=== PATIENT | female | born 1985 | race American Indian/Alaskan Native ===

== ENCOUNTER 2016-08-20 23:50 | Outpatient (CLI) | payer MEDICAID ==
[2016-08-20] MEDS ORDERED: LACTATED RINGERS 500 ML IV ONE (23:55)
[2016-08-21 00:12] VITALS: BP 99/57
[2016-08-21 00:28] LABS: Bilirubin,Urine NEG (Negative); Blood,Urine NEG (Negative); Ketones,Urine NEG (Negative); Leukocyte Esterase,Urine NEG (Negative); Mucus,Urine FEW /HPF; Nitrite,Urine NEG (Negative); Protein,Urine <15 mg/dL mg/dL (Negative); Urobilinogen,Urine < 2.0 mg/dL (<2.0)
[2016-08-21 00:32] LABS: RBC,Urine < 1.0 /HPF (0.0-6.0); WBC,Urine < 1.0 /HPF (0.0-6.0)
== END 2016-08-21 01:05 | disposition home or self-care (01) ==
LOC: TRG 23:50
PROVIDERS: ATTEND Obstetrics & Gynecology
DX: O26.892 Other specified pregnancy related conditions, second trimester (principal); R25.2 Cramp and spasm; Z3A.27 27 weeks gestation of pregnancy
CPT/HCPCS: 59025; 81001

== ENCOUNTER 2017-09-04 15:59 | Emergency (ER) | payer MEDICAID ==
[2017-09-04 16:46] VITALS: BP 124/76
[2017-09-04 18:03] LABS: Bilirubin,Urine NEG (Negative); Blood,Urine NEG (Negative); Color,Urine Yellow (Yellow); HCG Qualitative,Urine Negative (Negative); Mucus,Urine 3+ /HPF; Protein,Urine <15 mg/dL mg/dL (Negative)
--- NOTE | 2017-09-04 19:30 | Emergency Department Report ---
ED Female HPI - General Chief complaint: Abdominal Pain Stated complaint: CRAMPING Time Seen by Provider: 09/04/17 19:08 Source: patient Mode of arrival: Ambulatory Limitations: No Limitations - History of Present Illness Initial comments: This is a 32-year-old -[place] female that presents with abdominal cramping and to verify . Patient reports taken a home test this morning which was positive. She went into the [facility] office and took a test there which was negative this afternoon. Patient reports last menstrual period was 08/07/2017 and scheduled to start September 03. She went like to have confirmation of . Patient reports having vaginal discharge that is clear for 1 week and low abdominal cramping. 4 para 4 A0. Denies frequency, urgency, dysuria, and nausea or vomiting. MD Complaint: vaginal discharge (clear discharge), pelvic pain (lower abdominal cramping) -: week(s) (1 week) Location: suprapubic Radiation: non-radiating Severity: mild Severity scale (0 -10): 2 Quality: cramping Consistency: intermittent Improves with: none Worsens with: none Are you Now?: No Last Menstrual Period: 08/07/17 EDC: 05/14/18 Associated Symptoms: vaginal discharge (clear discharge), abdominal pain (lower abdominal cramping). denies: vaginal bleeding, nausea/vomiting, fever/chills, headaches, loss of appetite, dysuria, hematuria, rash, seizure, shortness of breath, syncope, weakness - Related Data Sexually active: Yes : 4 Para: 4 A: 0 Home Medications Medication Instructions Recorded Confirmed Last Taken Pnv,Calcium 72/Iron,Carb/Folic 1 tab PO DAILY 11/17/13 10/31/16 10/31/16 05:00 [ Plus Iron Tablet] valACYclovir [Valtrex] 500 mg PO BID 11/17/13 10/31/16 10/31/16 05:00 Allergies Allergy/AdvReac Type Severity Reaction Status Date / Time No Known Allergies Allergy Verified 02/22/15 15:21 ED Review of Systems ROS: Stated complaint: CRAMPING Other details as noted in HPI Constitutional: denies: chills, fever Respiratory: denies: cough, shortness of breath, wheezing Cardiovascular: denies: chest pain, palpitations Gastrointestinal: abdominal pain (lower abdominal cramping). denies: nausea, vomiting, diarrhea Genitourinary: discharge (clear thin discharge). denies: urgency, dysuria Musculoskeletal: denies: back pain, joint swelling, arthralgia Neurological: denies: headache, weakness, paresthesias Psychiatric: denies: anxiety, depression ED Past Medical Hx - Past Medical History Previous Medical History?: Yes Hx Hypertension: No Hx Congestive Heart Failure: No Hx Diabetes: No Hx Deep Vein Thrombosis: No Hx Renal Disease: No Hx Sickle Cell Disease: No Hx Seizures: No Hx Asthma: No Hx COPD: No Hx HIV: No Additional medical history: Vaginal delivery x 4 - Surgical History Past Surgical History?: Yes Additional Surgical History: Arthroscopy Right knee - Social History Smoking Status: Never Smoker Substance Use Type: Alcohol - Medications Home Medications: Home Medications Medication Instructions Recorded Confirmed Last Taken Type Pnv,Calcium 72/Iron,Carb/Folic 1 tab PO DAILY 11/17/13 10/31/16 10/31/16 05:00 History [ Plus Iron Tablet] valACYclovir [Valtrex] 500 mg PO BID 11/17/13 10/31/16 10/31/16 05:00 History ED Physical Exam - General Limitations: No Limitations General appearance: alert, in no apparent distress - Respiratory Respiratory exam: Present: normal lung sounds bilaterally. Absent: respiratory distress - Cardiovascular Cardiovascular Exam: Present: regular rate, normal rhythm, normal heart sounds. Absent: systolic murmur, diastolic murmur, rubs, gallop - GI/Abdominal GI/Abdominal exam: Present: soft, normal bowel sounds - Back Exam Back exam: Present: normal inspection. Absent: CVA tenderness (R), CVA tenderness (L) - Neurological Exam Neurological exam: Present: alert, oriented X3, normal gait - Psychiatric Psychiatric exam: Present: normal affect, normal mood - Skin Skin exam: Present: warm, dry, intact, normal color. Absent: rash ED Course Vital Signs 09/04/17 16:39 Temperature 98.5 F Pulse Rate 99 H Respiratory 18 Rate Blood Pressure 124/76 O2 Sat by Pulse 99 Oximetry ED Medical Decision Making - Medical Decision Making This is a 32 y.o. female presents with vaginal discharge and lower abdominal pain for one week. Patient took a home test this morning which was positive and would like to have confirmation of . Patient was examined by me. Vitals are stable and in no acute distress. Obtain urinalysis and urine hCG are all within normal limits. Discussed results with patient. Instructed to wait 1-2 weeks to see if menses start and follow up with primary care provider. Discharged home in stable condition. Discussed prevention options. F/U with PCP or Health Department. Critical care attestation.: If time is entered above; I have spent that time in minutes in the direct care of this critically ill patient, excluding procedure time. ED Disposition Clinical Impression: Negative test Disposition: TO HOME OR SELFCARE Is pt being admited?: No Does the pt Need Aspirin: No Condition: Stable Instructions: (ED), Abdominal Pain (ED) Additional Instructions: Follow-up with primary care provider or [facility]. Referrals: [facility] [Outside] - 3-5 Days [facility] [Provider Group] - 3-5 Days [facility] [Provider Group] - 3-5 Days Time of Disposition: 19:37 Print Language: THAI
== END 2017-09-04 19:43 | disposition home or self-care (01) ==
LOC: ED 15:59
DX: R10.30 Lower abdominal pain, unspecified (principal); N89.8 Other specified noninflammatory disorders of vagina
CPT/HCPCS: 81001; 81025; 99283

== ENCOUNTER 2018-04-04 16:19 | Outpatient (CLI) | payer MEDICAID ==
[2018-04-04] MEDS ORDERED: CELESTONE SOLUSPAN IM ONE (16:36)
== END 2018-04-04 17:05 | disposition home or self-care (01) ==
LOC: TRG 16:19
PROVIDERS: ATTEND Obstetrics & Gynecology
DX: O36.0130 Maternal care for anti-D [Rh] antibodies, third trimester, not applicable or unspecified (principal); Z3A.34 34 weeks gestation of pregnancy
CPT/HCPCS: 96372; J0702

== ENCOUNTER 2018-04-05 12:46 | Outpatient (CLI) | payer MEDICAID ==
[2018-04-05 13:02] VITALS: BP 108/55
--- NOTE | 2018-04-05 14:56 | Ultrasound Report ---
ULTRASOUND BIOPHYSICAL PROFILE: History: well being Technique: Transabdominal ultrasound with Doppler interrogation. 2 - breathing movements 2 - movements 2 - posture and tone 2 - Qualitative amniotic fluid volume 8 - TOTAL SCORE OF POSSIBLE 8 Heart Rate (bpm) 141
--- NOTE | 2018-04-05 14:57 | Ultrasound Report ---
ULTRASOUND OB LIMITED History: well being Technique: Transabdominal ultrasound with Doppler interrogation. Gestation: Single Position: Cephalic Amniotic Fluid: Normal [place] = 8.3 cm Heart Rate: 138 BPM
== END 2018-04-05 15:07 | disposition home or self-care (01) ==
LOC: TRG 12:46
PROVIDERS: ATTEND Obstetrics & Gynecology
DX: O47.03 False labor before 37 completed weeks of gestation, third trimester (principal); Z3A.34 34 weeks gestation of pregnancy
CPT/HCPCS: 59025; 76815; 76819

== ENCOUNTER 2018-04-24 12:28 | Inpatient (IN) | payer MEDICAID ==
[2018-04-24] MEDS ORDERED: MINERAL OIL PO PRN (13:05)
[2018-04-24] MEDS ORDERED: BRETHINE SUB-Q PRN (13:05)
[2018-04-24] MEDS ORDERED: NARCAN 0.4 MG/1 ML IV PRN (13:05)
[2018-04-24] MEDS ORDERED: XYLOCAINE 2% INFILTRATI ONE (13:05)
[2018-04-24] MEDS ORDERED: ZOFRAN IV PRN (13:05)
--- NOTE | 2018-04-24 13:12 | History and Physical Report ---
History of Present Illness Date of examination: 04/24/18 Date of admission: 04/24/18 12:41 Chief complaint: My water broke at 12:30PM today. 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 Past History Past Medical History: other (Depression) Past Surgical History: other (Knee sx) [facility] [facility] History: herpes, trichomonas Family/Genetic History: diabetes, hypertension, cancer Social history: no significant social history, single - Obstetrical History Expected Date of Delivery: 05/14/18 Actual Gestation: 37 Week(s) 1 Day(s) : 5 Para: 4 Hx # Term Pregnancies: 4 Number of Living Children: 4 #1 Infant Gender: Male year: 2,011 Birthweight: 2.948 kg Method of Delivery: Vaginal #2 Gender: Male year: 2,014 Birthweight: 3.714 kg Method of Delivery: Vaginal #3 Infant Gender: Male year: 2,015 Birthweight: 3.203 kg Method of Delivery: Vaginal #4 Gender: Female year: 2,017 Birthweight: 3.26 kg Method of Delivery: Vaginal Gestational age at delivery: 37 Medications and Allergies Allergies Allergy/AdvReac Type Severity Reaction Status Date / Time No Known Allergies Allergy Verified 02/22/15 15:21 Home Medications Medication Instructions Recorded Confirmed Last Taken Type Pnv,Calcium 72/Iron,Carb/Folic 1 tab PO DAILY 11/17/13 04/24/18 04/24/18 12:00 History [ Plus Iron Tablet] valACYclovir [Valtrex] 500 mg PO BID 11/17/13 04/24/18 04/24/18 12:00 History Review of Systems All systems: negative - Vital Signs Vital signs: Vital Signs Temp Resp 98.0 F 04/24/18 12:30 04/24/18 12:30 Temp Pulse Resp BP Pulse Ox 98.0 F 04/24/18 12:30 04/24/18 12:30 - Physical Exam Breasts: Cardiovascular: Regular rate, Normal S1, Normal S2 Abdomen: Positive: normal appearance, soft, normal bowel sounds. Negative: dist ention, tenderness Vulva: both: normal Vagina: Positive: normal moisture. Negative: discharge Cervix: Negative: lesion, discharge Uterus: Positive: normal size, normal contour Adnexa: both: normal Anus/Rectum: Positive: normal perianal skin, heme negative. Negative: rectal mass, hemorrhoids Extremities: Deep Tendon Reflex Grade: Normal +2 Results All other labs normal. Assessment and Plan A: IUP @ 37 1/7 Weeks PROM Category I Tracing GBS Negative P: Admit to L&D per Routine Orders Pitocin Induction
[2018-04-24] MEDS ORDERED: BRETHINE IVP PRN (13:13)
[2018-04-24] MEDS ORDERED: PITOCin/NS 30 UNIT/500ML 30 UNITS/500 ML BAG IV SCH (14:00)
[2018-04-24 14:05] LABS: Hematocrit 36.9 % (30.3-42.9); Hemoglobin 12.1 gm/dl (10.1-14.3); Mean Corpuscular HGB Conc 33 % (30-34); Mean Corpuscular Volume 82 fl (79-97); Platelet Count 185 K/mm3 (140-440); Red Blood Count 4.51 M/mm3 (3.65-5.03); Red Cell Distribution Width 15.4 % (13.2-15.2)
[2018-04-24] MEDS: LACTATED RINGERS 1,000 ML IV SCH ×3 (14:55→21:41)
[2018-04-24] MEDS: STADOL IV PRN ×2 (16:40→18:49)
--- NOTE | 2018-04-24 18:05 | Progress Note ---
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 Patient reports: loss of fluid, movement normal, contractions Objective - Vital Signs Vital Signs: Vital Signs - 12hr 04/24/18 04/24/18 04/24/18 12:30 14:01 15:12 Temperature 98.0 F 98.2 F Pulse Rate 96 H Respiratory 16 Rate Blood Pressure 121/69 04/24/18 04/24/18 04/24/18 15:42 16:00 16:12 Temperature 98.2 F Pulse Rate 88 93 H Respiratory Rate Blood Pressure 109/67 119/64 04/24/18 04/24/18 16:42 17:12 Temperature Pulse Rate 82 83 Respiratory Rate Blood Pressure 118/67 114/69 - Exam Breasts: normal Cardiovascular: Regular rate Lungs: Clear to auscultation, Normal air movement Abdomen: Present: normal appearance, soft, normal bowel sounds Uterus: Present: normal, firm, fundal height above umbilicus FHR: category 1 Uterine Contraction Monitor Mode: External Cervical Dilatation: 3 (leaking a moderate amount of clear fluid) Cervical Effacement Percentage: 80 station: -3 Uterine Contraction Pattern: Regular Uterine Tone Measurement Phase: Resting Uterine Contraction Intensity: Moderate Extremities: normal - Labs Labs: Abnormal Labs 04/24/18 13:00 MCH 27 L RDW 15.4 H Laboratory Results - last 24 hr 04/24/18 04/24/18 13:00 13:00 WBC 9.5 RBC 4.51 Hgb 12.1 Hct 36.9 MCV 82 MCH 27 L MCHC 33 RDW 15.4 H Plt Count 185 Blood Type O POSITIVE Antibody Screen Negative
[2018-04-24] MEDS ORDERED: NARCAN 2 MG/2 ML IV PRN (18:29)
[2018-04-24] MEDS ORDERED: fentaNYL-BUPIV 2 MCG/ML-0.125% 200 MCG/100 ML BAG EPIDURAL SCH (19:00)
--- NOTE | 2018-04-24 20:01 | Anesthesia Consultation ---
Anesthesia Consult and Med Hx Date of service: 04/24/18 - Airway Anesthetic Teeth Evaluation: Good ROM Head & Neck: Adequate Mental/Hyoid Distance: Adequate Mallampati Class: Class II Intubation Access Assessment: Probably Good - Pulmonary Exam CTA: Yes - Cardiac Exam Cardiac Exam: RRR - Pre-Operative Health Status ASA Pre-Surgery Classification: ASA2 Proposed Anesthetic Plan: Epidural - Pulmonary Hx Smoking: No Hx Asthma: No Hx Respiratory Symptoms: No - Cardiovascular System Hx Hypertension: No Hx Heart Attack/AMI: No - Central Nervous System Hx Neuromuscular Disorder: No Hx Seizures: No CVA: No - Endocrine Hx Renal Disease: No Hx Liver Disease: No Hx Insulin Dependent Diabetes: No Hx Non-Insulin Dependent Diabetes: No Hx Thyroid Disease: No - Additional Comments Anesthesia Medical History Comments: No complications with previous labor epidurals.
[2018-04-24] MEDS ORDERED: BRETHINE SUB-Q ONE (21:05)
[2018-04-24] MEDS: PITOCin/NS 20 UNIT/1000ML DRIP 20 UNITS/1,000 ML BAG IV SCH ×2 (21:44→22:52)
[2018-04-24] MEDS ORDERED: BENADRYL PO PRN (22:04)
[2018-04-24] MEDS ORDERED: TUCKS PAD TP PRN (22:04)
--- NOTE | 2018-04-24 22:12 | Procedure Note ---
OB Delivery Note - Delivery Date of Delivery: 04/24/18 (2138) Surgeon: ROMEL VINES Estimated blood loss: other (250) - Vaginal Delivery presentation: vertex Delivery position: OA Intrapartum events: mult.variable deceleratio Delivery induction: oxytocin Delivery augmentation: pitocin Delivery monitor: external FHT, external uterine Route of delivery: Delivery placenta: spontaneous Delivery cord: 3 umbilical vessels Episiotomy: none Delivery laceration: none Anesthesia: epidural Delivery comments: of a live 6'4 male over a intact perineum under epidural anesthesia with Apgars of 7 and 9 at 2138 on 04/24/2018. directly to maternal abd/chest, skin to skin contact. Spontaneous delivery of placenta complete and intact with Steven side presenting at 2142. Fundus is firm and midline located 4 below the U. Lochia is scant. Delayed cord clamping and cutting. Cord blood collected. Placenta discarded. - Infant A at 1 minute: 7 at 5 minutes: 9 Gender: Male (6'4)
[2018-04-24] MEDS ORDERED: SODIUM CHLORIDE FLUSH SYRINGE 10 ML IV NR (23:00)
[2018-04-25] MEDS: NORCO 5/325 PO PRN ×3 (02:59→15:20)
[2018-04-25] MEDS: IBUPROFEN PO SCH ×2 (03:00→18:09)
[2018-04-25] MEDS: PRENATAL VITAMIN PO SCH (08:36)
--- NOTE | 2018-04-25 10:35 | Progress Note ---
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 Patient reports: appetite normal, voiding normally, pain well controlled, flatus, ambulating normally : doing well, bottle feeding (and ) Objective - Vital Signs Latest vital signs: Vital Signs Temp Pulse Resp BP BP Pulse Ox 04/25/18 08:28 97.4 F L 63 100 H 115/64 04/25/18 04:00 98.7 F 77 18 114/78 04/25/18 03:00 18 04/25/18 02:59 18 04/25/18 00:40 114/66 04/25/18 00:28 98.3 F 18 97/53 04/24/18 22:37 102 H 112/55 04/24/18 22:22 99 H 108/57 04/24/18 22:07 100 H 109/59 04/24/18 21:53 106 H 105/54 04/24/18 21:31 112 H 100 04/24/18 21:26 116 H 100 04/24/18 21:09 100 H 129/74 04/24/18 20:54 86 136/87 04/24/18 20:38 71 116/75 04/24/18 20:20 120/68 04/24/18 20:17 80 112/67 04/24/18 20:14 71 114/70 04/24/18 20:11 81 117/67 04/24/18 20:08 89 114/66 04/24/18 20:05 77 112/63 04/24/18 20:02 75 114/65 04/24/18 19:59 93 H 105/57 04/24/18 19:56 95 H 110/61 04/24/18 19:53 88 111/59 04/24/18 19:50 80 108/58 04/24/18 19:47 97.8 F 94 H 18 102/55 102/55 04/24/18 19:44 86 109/59 04/24/18 19:40 85 103/60 04/24/18 19:38 90 100/57 04/24/18 19:35 114 H 96/51 04/24/18 19:32 95 H 104/55 04/24/18 19:30 96 H 114/59 04/24/18 19:12 90 137/65 04/24/18 18:12 80 104/69 04/24/18 17:12 83 114/69 04/24/18 16:42 82 118/67 04/24/18 16:12 93 H 119/64 04/24/18 16:00 98.2 F 04/24/18 15:42 88 109/67 04/24/18 15:12 96 H 121/69 04/24/18 14:01 98.2 F 04/24/18 12:30 98.0 F 16 Intake and Output 04/24/18 04/25/18 04/25/18 22:59 06:59 14:59 Intake Total 687.500 300 Output Total 1500 Balance 687.500 -1200 Intake: IV 687.500 Lactated Ringers 1,000 ml 545.833 @ 125 mls/hr IV DIRECT SCOTT Rx#:[id number] PITOCin/NS 20 UNIT/1000ML 141.667 DRIP 20 units In 1,000 ml @ 125 mls/hr IV DIRECT SCOTT Rx#:[id number] Oral 300 Output: Urine 1500 Void 1500 Other: Total, Intake Amount 300 Total, Output Amount 600 Estimated Blood Loss 250 - Exam Breasts: Present: normal Cardiovascular: Present: Regular rate Lungs: Present: Clear to auscultation, Normal air movement Abdomen: Present: normal appearance, soft, normal bowel sounds Uterus: Present: normal, firm, fundal height below umbilicus Extremities: Present: normal - Labs Labs: Abnormal lab results 04/24/18 Range/Units 13:00 MCH 27 L (28-32) pg RDW 15.4 H (13.2-15.2) %
--- NOTE | 2018-04-25 10:36 | Discharge Summary ---
Providers - Providers Date of Admission: 04/24/18 12:41 Date of discharge: 04/26/18 Attending physician: MAYCO CORONEL MD Primary care physician: MAYCO CORONEL MD Hospitalization Reason for admission: rupture of membranes Delivery: Episiotomy: none Laceration: none Other procedures: none complications: none Discharge diagnosis: IUP at term delivered [place] baby: male Condition at discharge: Good Disposition: DC-01 TO HOME OR SELFCARE Plan - Provider Discharge Summary Activity: routine, no sex for 6 weeks, no heavy lifting 4 weeks, no strenuous exercise Diet: routine Instructions: routine Additional instructions: [] Smoking cessation referral if applicable(refer to patient education folder for contact #) [] Refer to [facility] Booklet Call your doctor immediately for: * Fever > 100.5 * Heavy vaginal bleeding ( >1 pad per hour) * Severe persistent headache * Shortness of breath * Reddened, hot, painful area to leg or breast * Drainage or odor from incision. * Keep incision clean and dry at all times and follow doctor's instructions regarding bathing/showering - Follow up plan Follow up: MAYCO CORONEL MD [Primary Care Provider] - 6 Weeks
[2018-04-25 10:41] LABS: Hematocrit 35.4 % (30.3-42.9); Hemoglobin 11.6 gm/dl (10.1-14.3)
[2018-04-25] MEDS ORDERED: DEPO-PROVERA (CONTRACEPTION) IM NR (11:00)
[2018-04-25] MEDS ORDERED: AFLURIA QUAD 2018-2019 SYRINGE IM ONE (12:00)
[2018-04-26] MEDS: IBUPROFEN PO SCH ×2 (01:17→06:10)
[2018-04-26] MEDS ORDERED: BOOSTRIX IM ONE (06:00)
[2018-04-26 09:26] VITALS: BP 108/75
[2018-04-26] MEDS: PRENATAL VITAMIN PO SCH (10:00)
[2018-04-26] MEDS: NORCO 5/325 PO PRN (10:10)
[2018-04-26] MEDS ORDERED: AFLURIA QUAD 2018-2019 SYRINGE IM ONE (11:00)
== END 2018-04-26 15:30 | disposition home or self-care (01) | DRG 775 ==
LOC: TRG 12:28 → LD 12:41 → TRG 12:41 → OB 04-25 00:37
PROVIDERS: ADMIT Obstetrics & Gynecology; ATTEND Obstetrics & Gynecology
PROC: 10E0XZZ Delivery of Products of Conception, External Approach (ICD-10-PCS; principal; 2018-04-24)
PROC: 3E033VJ Introduction of Other Hormone into Peripheral Vein, Percutaneous Approach (ICD-10-PCS; 2018-04-24)
PROC: 3E0R3BZ Introduction of Anesthetic Agent into Spinal Canal, Percutaneous Approach (ICD-10-PCS; 2018-04-24)
PROC: 00HU33Z Insertion of Infusion Device into Spinal Canal, Percutaneous Approach (ICD-10-PCS; 2018-04-24)
PROC: 3E0234Z Introduction of Serum, Toxoid and Vaccine into Muscle, Percutaneous Approach (ICD-10-PCS; 2018-04-26)
DX: O42.02 Full-term premature rupture of membranes, onset of labor within 24 hours of rupture (principal); O99.344 Other mental disorders complicating childbirth; Z3A.37 37 weeks gestation of pregnancy; Z37.0 Single live birth; Z23 Encounter for immunization; F32.9 Major depressive disorder, single episode, unspecified; Z83.3 Family history of diabetes mellitus; Z82.49 Family history of ischemic heart disease and other diseases of the circulatory system; Z80.9 Family history of malignant neoplasm, unspecified; O76 Abnormality in fetal heart rate and rhythm complicating labor and delivery
CPT/HCPCS: 36415; 85014; 85018; 85027; 86592; 86850; 86900; 86901; 90686; 90715; G0378; J0595; J1050; J2590; J3105; J7120

== ENCOUNTER 2020-05-07 06:05 | Emergency (ER) | payer MEDICAID ==
[2020-05-07 06:35] VITALS: BP 113/77
[2020-05-07 06:58] LABS: Bacteria,Urine 1+ /HPF (Negative); Bilirubin,Urine NEG (Negative); Blood,Urine LG (Negative); Color,Urine Yellow (Yellow); Mucus,Urine FEW /HPF; Urobilinogen,Urine < 2.0 mg/dL (<2.0)
[2020-05-07 07:02] LABS: RBC,Urine > 182.0 /HPF (0.0-6.0)
[2020-05-07 07:44] LABS: Basophils % (Auto) 0.7 % (0.0-1.8); Eosinophils # (Auto) 0.1 K/mm3 (0.0-0.4); Hematocrit 40.8 % (30.3-42.9); Hemoglobin 13.7 gm/dl (10.1-14.3); Lymphocytes # (Auto) 2.1 K/mm3 (1.2-5.4); Lymphocytes % (Auto) 31.6 % (13.4-35.0); Mean Corpuscular HGB Conc 33 % (30-34); Mean Corpuscular Volume 86 fl (79-97); Monocytes # (Auto) 0.3 K/mm3 (0.0-0.8); Monocytes % (Auto) 5.2 % (0.0-7.3); Platelet Count 330 K/mm3 (140-440); Red Blood Count 4.73 M/mm3 (3.65-5.03); Red Cell Distribution Width 14.5 % (13.2-15.2)
[2020-05-07 08:00] LABS: Alanine Aminotransferase 14 units/L (7-56); Albumin 4.4 g/dL (3.9-5); Blood Urea Nitrogen 14 mg/dL (7-17); Calcium 9.3 mg/dL (8.4-10.2); Hemolysis Index 6
[2020-05-07 08:03] LABS: BUN/Creatinine Ratio 23
[2020-05-07] MEDS ORDERED: ACETAMINOPHEN 325 MG TAB PO ONE (08:04)
--- NOTE | 2020-05-07 08:34 | Emergency Department Report ---
ED General Adult HPI - General Chief complaint: Vaginal Bleeding Stated complaint: 4WKS PREG/BLEEDING Time Seen by Provider: 05/07/20 07:33 Source: patient Mode of arrival: Ambulatory Limitations: No Limitations - History of Present Illness Initial comments: 34-year-old -[place] female patient presents with complaints of abdominal cramping and vaginal bleeding x today. Patient states she had a positive blood test at [facility] about 2 weeks ago. Last menstrual cycle was 03/09/2020. She denies any vaginal discharge/dyspareunia, abena sea/vomiting/diarrhea, fever/chills/sweats, or dysuria/hematuria/urinary frequency. Patient rates her current pain as a 5/10 in severity. She denies trying any OTC medication for symptoms. Severity scale (0 -10): 4 - Related Data Home Medications Medication Instructions Recorded Confirmed Last Taken Pnv,Calcium 72/Iron,Carb/Folic 1 tab PO DAILY 11/17/13 04/24/18 04/24/18 12:00 [ Plus Iron Tablet] valACYclovir [Valtrex] 500 mg PO BID 11/17/13 04/24/18 04/24/18 12:00 Previous Rx's Medication Instructions Recorded Last Taken Type Nitrofurantoin [place]/M-Cryst 100 mg PO Q12HR 5 Days #10 capsule 05/07/20 Unknown Rx [Macrobid CAP] Allergies Allergy/AdvReac Type Severity Reaction Status Date / Time No Known Allergies Allergy Verified 02/22/15 15:21 ED Review of Systems ROS: Stated complaint: 4WKS PREG/BLEEDING Other details as noted in HPI Constitutional: denies: chills, diaphoresis, fever, malaise, weakness Respiratory: denies: cough, shortness of breath Cardiovascular: denies: chest pain Gastrointestinal: abdominal pain. denies: nausea, vomiting, diarrhea, constipation Genitourinary: denies: urgency, dysuria, frequency, hematuria, discharge, dyspareunia Skin: denies: change in color Neurological: denies: headache, paresthesias Hematological/Lymphatic: denies: swollen glands ED Past Medical Hx - Past Medical History Previous Medical History?: No Hx Hypertension: No Hx Heart Attack/AMI: No Hx Congestive Heart Failure: No Hx Diabetes: No Hx Deep Vein Thrombosis: No Hx Liver Disease: No Hx Renal Disease: No Hx Sickle Cell Disease: No Hx Seizures: No Hx Asthma: No Hx COPD: No Hx HIV: No Additional medical history: Vaginal delivery x 4 - Surgical History Past Surgical History?: Yes Additional Surgical History: Arthroscopy Right knee - Social History Smoking Status: Never Smoker Substance Use Type: None - Medications Home Medications: Home Medications Medication Instructions Recorded Confirmed Last Taken Type Pnv,Calcium 72/Iron,Carb/Folic 1 tab PO DAILY 11/17/13 04/24/18 04/24/18 12:00 History [ Plus Iron Tablet] valACYclovir [Valtrex] 500 mg PO BID 11/17/13 04/24/18 04/24/18 12:00 History Nitrofurantoin [place]/M-Cryst 100 mg PO Q12HR 5 Days #10 capsule 05/07/20 Unknown Rx [Macrobid CAP] ED Physical Exam - General Limitations: No Limitations General appearance: alert, in no apparent distress - Head Head exam: Present: atraumatic, normocephalic - Eye Eye exam: Present: normal appearance. Absent: scleral icterus - Neck Neck exam: Present: normal inspection - Respiratory Respiratory exam: Present: normal lung sounds bilaterally. Absent: respiratory distress - Cardiovascular Cardiovascular Exam: Present: regular rate, normal rhythm. Absent: systolic murmur, diastolic murmur, rubs, gallop - GI/Abdominal GI/Abdominal exam: Present: soft, normal bowel sounds. Absent: distended, tenderness, guarding, rebound, rigid - Back Exam Back exam: Present: full ROM - Neurological Exam Neurological exam: Present: alert, oriented X3, normal gait - Psychiatric Psychiatric exam: Present: normal affect, normal mood - Skin Skin exam: Present: warm, dry, intact, normal color. Absent: rash, cyanosis ED Course Vital Signs 05/07/20 06:30 Temperature 98.8 F Pulse Rate 80 Respiratory 20 Rate Blood Pressure 113/77 O2 Sat by Pulse 99 Oximetry ED Medical Decision Making - Lab Data Result diagrams: 05/07/20 07:01 05/07/20 07:01 Lab Results 05/07/20 05/07/20 05/07/20 Range/Units 07:01 07:01 07:01 WBC 6.7 (4.5-11.0) K/mm3 RBC 4.73 (3.65-5.03) M/mm3 Hgb 13.7 (10.1-14.3) gm/dl Hct 40.8 (30.3-42.9) % MCV 86 (79-97) fl MCH 29 (28-32) pg MCHC 33 (30-34) % RDW 14.5 (13.2-15.2) % Plt Count 330 (140-440) K/mm3 Lymph % (Auto) 31.6 (13.4-35.0) % [place] % (Auto) 5.2 (0.0-7.3) % Eos % (Auto) 1.0 (0.0-4.3) % Baso % (Auto) 0.7 (0.0-1.8) % Lymph # (Auto) 2.1 (1.2-5.4) K/mm3 [place] # (Auto) 0.3 (0.0-0.8) K/mm3 Eos # (Auto) 0.1 (0.0-0.4) K/mm3 Baso # (Auto) 0.0 (0.0-0.1) K/mm3 Seg Neutrophils % 61.5 (40.0-70.0) % Seg Neutrophils # 4.1 (1.8-7.7) K/mm3 Sodium (137-145) mmol/L Potassium (3.6-5.0) mmol/L Chloride (98-107) mmol/L Carbon Dioxide (22-30) mmol/L Anion Gap mmol/L BUN (7-17) mg/dL Creatinine (0.6-1.2) mg/dL Estimated GFR ml/min BUN/Creatinine Ratio % Glucose (65-100) mg/dL Calcium (8.4-10.2) mg/dL Total Bilirubin (0.1-1.2) mg/dL AST (5-40) units/L ALT (7-56) units/L Alkaline Phosphatase (35-129) units/L Total Protein (6.3-8.2) g/dL Albumin (3.9-5) g/dL Albumin/Globulin Ratio % HCG, Quant < 2 (0-4) mIU/mL Urine Color (Yellow) Urine Turbidity (Clear) Urine pH (5.0-7.0) Ur Specific [place] (1.003-1.030) Urine Protein (Negative) mg/dL Urine Glucose (UA) (Negative) mg/dL Urine Ketones (Negative) mg/dL Urine Blood (Negative) Urine Nitrite (Negative) Urine Bilirubin (Negative) Urine Urobilinogen (<2.0) mg/dL Ur Leukocyte Esterase (Negative) Urine WBC (Auto) (0.0-6.0) /HPF Urine RBC (Auto) (0.0-6.0) /HPF U Epithel Cells (Auto) (0-13.0) /HPF Urine Bacteria (Auto) (Negative) /HPF Urine Mucus /HPF Blood Type O POSITIVE 05/07/20 05/07/20 Range/Units 07:01 Unknown WBC (4.5-11.0) K/mm3 RBC (3.65-5.03) M/mm3 Hgb (10.1-14.3) gm/dl Hct (30.3-42.9) % MCV (79-97) fl MCH (28-32) pg MCHC (30-34) % RDW (13.2-15.2) % Plt Count (140-440) K/mm3 Lymph % (Auto) (13.4-35.0) % [place] % (Auto) (0.0-7.3) % Eos % (Auto) (0.0-4.3) % Baso % (Auto) (0.0-1.8) % Lymph # (Auto) (1.2-5.4) K/mm3 [place] # (Auto) (0.0-0.8) K/mm3 Eos # (Auto) (0.0-0.4) K/mm3 Baso # (Auto) (0.0-0.1) K/mm3 Seg Neutrophils % (40.0-70.0) % Seg Neutrophils # (1.8-7.7) K/mm3 Sodium 137 (137-145) mmol/L Potassium 4.0 (3.6-5.0) mmol/L Chloride 102.2 (98-107) mmol/L Carbon Dioxide 28 (22-30) mmol/L Anion Gap 11 mmol/L BUN 14 (7-17) mg/dL Creatinine 0.6 (0.6-1.2) mg/dL Estimated GFR > 60 ml/min BUN/Creatinine Ratio 23 % Glucose 106 H (65-100) mg/dL Calcium 9.3 (8.4-10.2) mg/dL Total Bilirubin 0.30 (0.1-1.2) mg/dL AST 14 (5-40) units/L ALT 14 (7-56) units/L Alkaline Phosphatase 69 (35-129) units/L Total Protein 8.1 (6.3-8.2) g/dL Albumin 4.4 (3.9-5) g/dL Albumin/Globulin Ratio 1.2 % HCG, Quant (0-4) mIU/mL Urine Color Yellow (Yellow) Urine Turbidity Slightly-cloudy (Clear) Urine pH 6.0 (5.0-7.0) Ur Specific [place] 1.018 (1.003-1.030) Urine Protein 30 mg/dl (Negative) mg/dL Urine Glucose (UA) Neg (Negative) mg/dL Urine Ketones Neg (Negative) mg/dL Urine Blood Lg (Negative) Urine Nitrite Neg (Negative) Urine Bilirubin Neg (Negative) Urine Urobilinogen < 2.0 (<2.0) mg/dL Ur Leukocyte Esterase Tr (Negative) Urine WBC (Auto) 16.0 H (0.0-6.0) /HPF Urine RBC (Auto) > 182.0 (0.0-6.0) /HPF U Epithel Cells (Auto) 12.0 (0-13.0) /HPF Urine Bacteria (Auto) 1+ (Negative) /HPF Urine Mucus Few /HPF Blood Type - Medical Decision Making 34-year-old -[place] female patient presents with complaints of abdominal cramping and vaginal bleeding x today. Patient states she had a positive blood test at [facility] about 2 weeks ago. Last menstrual cycle was 03/09/2020. She denies any vaginal discharge/dyspareunia, nausea/vomiting/diarrhea, fever/chills/sweats, or dysuria/hematuria/urinary frequency. Patient rates her current pain as a 5/10 in severity. She denies trying any OTC medication for symptoms. CBC and CMP are negative for any acute abnormalities. Beta-hCG quantitative is <2. UA shows elevated WBCs. Will treat for UTI with Macrobid. Suspect missed . Recommend follow-up with [facility] in 2 days for repeat beta hCG. Discussed signs and symptoms that should prompt immediate return to the emergency department in detail with patient who verbalized understanding. Patient's vitals are normal, she is well-appearing, she is stable for discharge home. Critical care attestation.: If time is entered above; I have spent that time in minutes in the direct care of this critically ill patient, excluding procedure time. ED Disposition Clinical Impression: Vaginal bleeding, Miscarriage UTI (urinary tract infection) Qualifiers: Urinary tract infection type: acute cystitis Hematuria presence: without hematuria Qualified Code(s): N30.00 - Acute cystitis without hematuria Disposition: TO HOME OR SELFCARE Is pt being admited?: No Condition: Stable Instructions: Urinary Tract Infection, Adult, Threatened Miscarriage Additional Instructions: Please follow up with your OBGYN in 2 days for a repeat beta HCG test Prescriptions: Nitrofurantoin [place]/M-Cryst [Macrobid CAP] 100 mg PO Q12HR 5 Days #10 capsule Referrals: PRIMARY CARE, [Primary Care Provider] - 3-5 Days
== END 2020-05-07 08:40 | disposition home or self-care (01) ==
LOC: ED 06:05
DX: O03.9 Complete or unspecified spontaneous abortion without complication (principal); O23.41 Unspecified infection of urinary tract in pregnancy, first trimester; Z3A.01 Less than 8 weeks gestation of pregnancy; Z98.890 Other specified postprocedural states; Z79.899 Other long term (current) drug therapy
CPT/HCPCS: 36415; 80053; 81001; 84702; 85025; 86900; 86901; 87086

== ENCOUNTER 2021-03-05 11:16 | Outpatient (CLI) | payer MEDICAID ==
[2021-03-05 13:17] VITALS: BP 110/63
[2021-03-05] MEDS ORDERED: LACTATED RINGERS 500 ML IV ONE (14:30)
[2021-03-05 14:52] LABS: Bilirubin,Urine NEG (Negative); Blood,Urine NEG (Negative); Color,Urine Amber (Yellow); Mucus,Urine 3+ /HPF
== END 2021-03-05 16:55 | disposition home or self-care (01) ==
LOC: TRG 11:16 → APU 11:18 → TRG 16:55
PROVIDERS: ATTEND Obstetrics & Gynecology
DX: O62.9 Abnormality of forces of labor, unspecified (principal); O99.012 Anemia complicating pregnancy, second trimester; D64.9 Anemia, unspecified; Z3A.27 27 weeks gestation of pregnancy
CPT/HCPCS: 59025; 81001; 96361; 96365; J0690; J7120; 96360; J3490

== ENCOUNTER 2021-04-12 15:18 | Outpatient (CLI) | payer MEDICAID ==
[2021-04-12 15:46] VITALS: BP 101/58
[2021-04-12] MEDS ORDERED: BETAMET ACET/BETAMET NA PH 6 MG/ML INJ 5 ML MDV IM SCH (18:00)
== END 2021-04-12 17:15 | disposition home or self-care (01) ==
LOC: TRG 15:18 → APU 15:19 → TRG 17:15
PROVIDERS: ATTEND Obstetrics & Gynecology
DX: O47.1 False labor at or after 37 completed weeks of gestation (principal); Z3A.33 33 weeks gestation of pregnancy
CPT/HCPCS: 59025; 96372; J0702

== ENCOUNTER 2021-04-13 17:39 | Outpatient (CLI) | payer MEDICAID ==
[2021-04-13] MEDS ORDERED: BETAMET ACET/BETAMET NA PH 6 MG/ML INJ 5 ML MDV IM ONE (18:47)
== END 2021-04-13 18:12 | disposition home or self-care (01) ==
LOC: TRG 17:39 → APU 17:40 → TRG 18:12
PROVIDERS: ATTEND Obstetrics & Gynecology
DX: Z34.93 Encounter for supervision of normal pregnancy, unspecified, third trimester (principal); Z3A.33 33 weeks gestation of pregnancy
CPT/HCPCS: 96372; J0702

== ENCOUNTER 2021-05-08 15:39 | Outpatient (CLI) | payer MEDICAID ==
[2021-05-08] MEDS ORDERED: LACTATED RINGERS 500 ML IV ONE (15:55)
[2021-05-08 16:01] VITALS: BP 116/59
[2021-05-08 16:28] LABS: Bacteria,Urine 1+ /HPF (Negative); Bilirubin,Urine NEG (Negative); Blood,Urine NEG (Negative); Color,Urine Yellow (Yellow); Mucus,Urine 3+ /HPF
--- NOTE | 2021-05-08 18:17 | Ultrasound Report ---
LIMITED OBSTETRICAL ULTRASOUND INDICATION: labor, 36 week 6 day COMPARISON: None pertinent. FINDINGS: Well-developed intrauterine is seen in a cephalic position. Cardiac activity was documented at 143 bpm. Posterior placenta is free of the internal cervical os. Amniotic fluid volume appears appropriate and [place] is within normal limits at 14 cm. Limited imaging shows no obvious abnorm alities. BIOPHYSICAL PROFILE breathing movements: 2/2 movements: 2/2 posture and tone tone: 2/2 Qualitative amniotic fluid volume: 2/2 Total score: 8/8, within normal limits Signer Name: Dakotah Lawrence MD Signed: 05/08/2021 6:13 PM Workstation Name: [id number]
== END 2021-05-08 18:03 | disposition home or self-care (01) ==
LOC: TRG 15:39 → APU 15:41 → TRG 18:03
PROVIDERS: ATTEND Obstetrics & Gynecology
DX: O36.8130 Decreased fetal movements, third trimester, not applicable or unspecified (principal); Z3A.36 36 weeks gestation of pregnancy
CPT/HCPCS: 59025; 76815; 76819; 81001